=== PATIENT | male | born 1955 | race Caucasian/White ===

== ENCOUNTER 2020-11-07 06:57 | Emergency (ER) | payer OTHER, SELFPAY ==
--- NOTE | 2020-11-07 07:00 | DI.RAD_ITS ---
EXAM: XR WRIST RT COMPLETE CLINICAL HISTORY: pain s/p fall last night. TECHNIQUE: 2D digital imaging was performed. COMPARISON: No exams were available for comparison FINDINGS: BONES: No acute fracture is present. No bony destructive lesion is seen. A well corticated tiny ossic le is seen adjacent to the radial styloid process. This appears chronic. JOINTS: The carpal bones are normally aligned. There are degenerative changes in the wrist. SOFT TISSUE: Chondrocalcinosis is present. Soft tissue swelling around the volar aspect of the wrist is noted. IMPRESSION: No acute fracture or dislocation. Soft tissue swelling of the wrist. DATA REPOSITORY: RADIATION DOSE DELIVERED:
[2020-11-07 07:01] VITALS: BP 155/86; PULSE 61; RESP 16; TEMP 36.7; O2SAT 97
--- NOTE | 2020-11-07 07:04 | ED.GENADUL_ITS ---
Discharge Plan Disposition Patient Disposition: HOME Condition: Stable Discharge Details Clinical Impression: Right wrist sprain Primary Care Provider: Daryl Qureshi ED Provider: Dorian Kitchen Home Meds and New Rx's Prescriptions: Continued multivitamin [Daily Multi-Vitamin] 1 EACH tablet 1 ea PO DAILY RF: 0 Glucosamine Sulf-Chondroitin 1 EACH capsule 1 ea PO DAILY RF: 0 oxycodone 10 MG tablet 10 mg PO Q6H PRN PRN (Reason: Severe Pain) Qty: 14 RF: 0 Discharge Instructions Instructions: Wrist Sprain (ED) Additional Instructions: wear the splint until you are pain free if pain continues in a week follow up with your primary care provider for reevaluation return to the emergency department for severe worsening of pain Medical Decision Making 65 yo male was riding his granddaughter's hoverboard when he fell and landed on his right wrist, denies hitting head or loc, has no head pain, neck pain, chest pain, abdominal pain, back pain or leg pain. HAs pain in the radial right wrist without swelling and can fully move the wrist but with pain. Normal pulses and senastion and no pain in the ringers or carpal bones. No pain in elbow or should with full rom. Suspect sprain vs contusion but will obtain xray to evaluate for fracture. xray negative on my read, if vrad agrees will place in thumb spica splint just due to location of pain and advised if pain continues in a week follow up with pcp Differential Diagnosis Differential Diagnosis: sprain, strain, fx, dislocation, contusion Imaging Data Radiologic Study: Attestation: I personally reviewed and interpreted this imaging study as follows: Imaging: X-Ray My impression: no acute findings HPI General Mode of arrival: ambulatory . Date/Time Provider Initiated Documentation: 11/07/20 07:03 . Limitations to Documentation: no limitations . Information obtained by: patient . History of Present Illness 65 year old M presents to the emergency department with the chief complaint of right wrist pain, described as moderate, and it has been constant. Rest improves symptom(s), Movement worsens symptoms . Patient notes no other symptoms.. Related Data Home Medications Medication Instructions Recorded Confirmed Glucosamine Sulf-Chondroitin 1 ea PO DAILY 02/19/17 11/07/20 multivitamin [Daily Multi-Vitamin] 1 ea PO DAILY 02/19/17 02/19/17 oxycodone 10 mg PO Q6H PRN PRN #14 tab 02/19/17 11/07/20 Previous Rx's Medication Instructions Recorded oxycodone 10 mg PO Q6H PRN PRN #14 tab 02/19/17 Allergies Allergy/AdvReac Type Severity Reaction Status Date / Time No Known Allergies Allergy Unverified 11/07/20 07:05 Review of Systems All systems reviewed & are unremarkable except as noted in HPI and below Constitutional Constitutional: Denies chills, Denies fever(s) and Denies weakness Cardiovascular Cardiovascular: Denies chest pain and Denies dyspnea Respiratory Respiratory: Denies cough and Denies dyspnea Gastrointestinal Gastrointestinal: Denies abdominal pain, Denies nausea and Denies vomiting Neurologic Neurologic: Denies weakness [facility] Social History Smoking/Tobacco Use Status: Never Smoking risk assessment performed?: Yes Alcohol Intake: never Drug use: Never Do you feel safe in your relationship?: Yes Exam Const General: no acute distress Orientation: alert HENMT Head: normal to inspection Ears: external ears normal General nose exam: external nose normal Mouth: moist mucous membranes Eyes General: appearance normal, both eyes and all related structures Neck Neck: normal visual inspection Resp Effort & Inspection: normal respiratory effort and able to speak in complete sentences Cardio Rate: regular rate Skin General skin exam: no rashes or lesions noted Neuro General: patient alert and patient oriented x3 Extrem General: capillary refill normal Psych Mental Status: mental status grossly normal
[2020-11-07] MEDS: Ibuprofen 600 MG TAB PO (07:10)
--- NOTE | 2020-11-07 07:42 | DI.VRAD_ITS ---
PROCEDURE INFORMATION: Exam: XR Right Wrist Exam date and time: 11/07/2020 7:30 AM Age: 65 years old Clinical indication: Other: Pain S/P fall last night TECHNIQUE: Imaging protocol: XR Right wrist. Views: 3 or more views. COMPARISON: No relevant prior studies available. FINDINGS: Bones/joints: Degenerative changes and chondrocalcinosis noted. Chronic ossicle adjacent to the radial styloid process Soft tissues: Swelling noted around the volar aspect of the wrist IMPRESSION: No acute fracture noted Soft tissue swelling as noted Chronic findings as described Dictated and Authenticated by: Eliezer Ann MD. Ordering:MANOLO Alarcon MD
== END 2020-11-07 07:45 | disposition home or self-care (01) ==
LOC: ER 07:32
PROVIDERS: Emergency Provider Emergency Medicine; PCP Family Medicine
DX: S63.591A Other specified sprain of right wrist, initial encounter (principal); V00.181A Fall from other rolling-type pedestrian conveyance, initial encounter
CPT/HCPCS: 29125; 99283; 73110

== ENCOUNTER 2021-05-09 19:20 | Outpatient (REF) | payer OTHER, SELFPAY ==
--- NOTE | 2021-05-09 12:00 | SKI_PTH ---
PATIENT: Orville Power LOC: [facility]#:[id number] AGE/SX: 65/M ROOM: RE05/09/[address]: Daryl Qureshi : 1955 BED: DIS: 05/09/2021 SPEC #: [id number] RECD: 05/10/21 12:42 STATUS: VICKI REIza #: [id number] MARLEY: 05/09/21 12:[address]: Daryl Qureshi DEPT: Surgical Specimen RECD BY: Abeba Hood Tissues: 1 - SKIN BIOPSY(SHAVE/PUNCH) Procedures: SKIN LEVEL 4 Comments: [id number]
[2021-05-09 20:27] LABS: Hemoglobin A1C 5.6 % (<5.7)
== END 2021-05-09 19:21 | disposition home or self-care (01) ==
LOC: NCHCN 19:20
PROVIDERS: PCP Family Medicine; Visit Provider Family Medicine
DX: C44.519 Basal cell carcinoma of skin of other part of trunk (principal)
CPT/HCPCS: 82565; 83036; 88305

== ENCOUNTER 2022-05-10 14:13 | Outpatient (REF) | payer OTHER, SELFPAY ==
--- NOTE | 2022-05-10 12:40 | SKI_PTH ---
PATIENT: Orville Power LOC: [facility]#:[id number] AGE/SX: 66/M ROOM: RE05/10/[address]: Daryl Qureshi : 1955 BED: DIS: 05/10/2022 SPEC #: [id number] RECD: 05/10/22 17:16 STATUS: VICKI REQ #: [id number] MARLEY: 05/10/22 12:[address]: Daryl Qureshi DEPT: Surgical Specimen RECD BY: Abeba Hood Tissues: 1 - SKIN BIOPSY(SHAVE/PUNCH) Procedures: SKIN LEVEL 4 Comments: [id number]
== END 2022-05-10 14:14 | disposition home or self-care (01) ==
LOC: NCHCN 14:13
PROVIDERS: PCP Family Medicine; Visit Provider Family Medicine
DX: L82.1 Other seborrheic keratosis (principal)
CPT/HCPCS: 88305

== ENCOUNTER 2023-05-17 11:07 | Outpatient (REF) | payer OTHER, SELFPAY ==
[2023-05-17 17:27] LABS: CREATININE 1.1 mg/dL (0.70-1.30); Calculated LDL 131 mg/dL (<100); Cholesterol 213 mg/dL (<200); HDL Cholesterol 67 mg/dL (40-60); Triglyceride 76 mg/dL (<150)
== END 2023-05-17 11:08 | disposition home or self-care (01) ==
LOC: NCHCN 11:07
PROVIDERS: PCP Family Medicine; Visit Provider Family Medicine
DX: Z00.00 Encounter for general adult medical examination without abnormal findings (principal); I10 Essential (primary) hypertension
CPT/HCPCS: 80061; 82565

== ENCOUNTER 2024-12-31 16:31 | Outpatient (CLI) | payer OTHER, SELFPAY ==
--- NOTE | 2024-12-31 | DI.RAD_ITS ---
Exam(s) XR KNEE RT 3V AP,LAT,ESTEBAN EXAM: XR KNEE RT 3V AP,LAT,ESTEBAN CLINICAL HISTORY: H/o OA, rt knee, M17.9, chondrocalcinosis present on x-ray of 2017, left. TECHNIQUE: 2D digital imaging was performed of the right knee. Three views obtained. AP, lateral an d PA tunnel views were obtained. COMPARISON: CR RIGHT KNEE 3 VIEWS from 02/19/2017 FINDINGS: BONES: No acute fracture is present. No bony destructive lesion is seen. JOINTS: There are marked degenerative changes seen in the right knee characterized by joint space pallavi rowing and osteophytes. The findings are most marked in the lateral femoral tibial in the patellofem oral joint. There is medial subluxation of the femur relative to the tibial plateau. There is chond rocalcinosis present. No joint effusion is seen. The patella appears laterally subluxed relative to the distal femur. SOFT TISSUE: Normal. IMPRESSION: Marked arthrosis of the right knee which has significantly progressed since the prior examination 2016. DATA REPOSITORY: RADIATION DOSE DELIVERED:
== END 2024-12-31 16:51 ==
PROVIDERS: PCP Family Medicine; Visit Provider Student in an Organized Health Care Education/Training Program
DX: M17.11 Unilateral primary osteoarthritis, right knee (principal)
CPT/HCPCS: 73562

== ENCOUNTER 2024-12-31 22:04 | Outpatient (REF) | payer OTHER, SELFPAY ==
[2024-12-31 19:41] LABS: Vitamin D 25 Total 67.9 ng/mL (30-100)
== END 2024-12-31 22:05 | disposition home or self-care (01) ==
LOC: NCHCN 22:04
PROVIDERS: PCP Family Medicine; Visit Provider Student in an Organized Health Care Education/Training Program
DX: E55.9 Vitamin D deficiency, unspecified (principal)
CPT/HCPCS: 82306

== ENCOUNTER 2025-03-25 09:12 | Outpatient (REF) | payer OTHER, SELFPAY ==
--- NOTE | 2025-03-24 07:38 | SKI_PTH ---
PATIENT: Orville Power LOC: [facility] U#:[id number] AGE/SX: 69/M ROOM: RE03/25/[address]: Jared Wei MD : 1955 BED: DIS: 03/25/2025 SPEC #: [id number] RECD: 03/25/25 11:46 STATUS: VICKI REQ #: [id number] MARLEY: 03/24/25 07:[address]: Jared Wei DEPT: Surgical Specimen RECD BY: Abeba Hood ENTERED: 03/25/25 11:47 SP TYPE: MARIO REBOLLEDO DR: Robbi Choudhary Tissues: 1 - SKIN BIOPSY(SHAVE/PUNCH) Procedures: SKIN LEVEL 4 Comments: [id number]
== END 2025-03-25 09:13 | disposition home or self-care (01) ==
LOC: LBN 09:12
PROVIDERS: PCP Student in an Organized Health Care Education/Training Program; Visit Provider Otolaryngology
DX: C44.319 Basal cell carcinoma of skin of other parts of face (principal)
CPT/HCPCS: 88305

== ENCOUNTER 2025-05-04 07:55 | Day surgery (SDC) | payer OTHER, SELFPAY ==
[2025-05-04] VITALS (13 sets, daily range): BP systolic 118–187; BP diastolic 70–89; PULSE 49–68; RESP 13–16; TEMP 36.2–36.6; O2SAT 97–100; BMI 22.4
[2025-05-04] MEDS: Lactated Ringers 1,000 ML 50 ML IV (08:38)
--- NOTE | 2025-05-04 09:11 | W.ANESPRE ---
General Info Date of Service Date Performed: 05/04/25 Height: 5 ft 11 in Weight: 73.1 kg Body Mass Index (BMI): 22.4 Surgical Procedure: Operation Date: 05/04/25 09:55 Proposed Procedure Side Surgeon p Septoplasty Jared Wei MD Meds Allergies and Home Medications Allergies Allergy/AdvReac Type Severity Reaction Status Date / Time No Known Allergies Allergy Verified 05/04/25 08:18 Home Medication ?Medication ?Instructions ?Recorded glucosamine sulfate dipotassium Cl 1 ea PO DAILY 02/19/17 500 mg-chondroitin 400 mg capsule (Glucosamine Sulfate 2 KCL-Chondroitin) multivitamin (Daily Multi-Vitamin 1 ea PO DAILY 02/19/17 tablet) cholecalciferol (vitamin D3) 10 10 mcg PO DAILY 01/06/25 mcg (400 unit) capsule tadalafil 10 mg tablet (Cialis) 10 mg PO DAILY PRN 01/06/25 magnesium 200 mg tablet 400 mg PO DAILY 01/15/25 Current Visit Medications: Current Medications Generic Name Dose Route Start Last Admin Trade Name Nyasia PRN Reason Stop Dose Admin Cefazolin Sodium/Dextrose 2 gm in 50 mls @ 100 mls/hr 05/04/25 06:00 Ancef Duplex IVPB 05/04/25 23:59 PREOP MARIA ESTHER Tranexamic Acid/Sodium Chloride 1,000 mg in 100 mls @ 600 mls/hr 05/04/25 06:00 IVPB 05/04/25 23:59 PREOP MARIA ESTHER Ringer's Solution 1,000 mls @ 50 mls/hr 05/04/25 08:45 IV 06/03/25 08:44 INFUSION MARIA ESTHER IV Miscellaneous Supplies 1 each 05/04/25 06:00 Iv Access IV 05/04/25 23:59 DIRECTED MARIA ESTHER Sodium Chloride 0 ml 05/04/25 06:00 Normal Saline Flush 10 Ml Syr IV 05/04/25 23:59 PRN PRN Sodium Chloride 0 ml 05/04/25 06:00 Normal Saline 10 Ml Vial IJ 05/04/25 23:59 DIRECTED PRN Sterile Water 0 ml 05/04/25 06:00 Water,Injection,Sterile 10 Ml Vial IJ 05/04/25 23:59 DIRECTED PRN PFSH Active Problems Active Problems: Problem Status Onset Code Osteoarthritis of right knee Acute M17.11 Skin lesion Acute L98.9 Other specified disorders of nose and nasal sinuses Acute J34.89 Essential hypertension Acute I10 Erectile dysfunction Acute N52.9 Hyperlipidemia Acute E78.5 Vitamin D deficiency Acute E55.9 Basal cell carcinoma of skin Acute C44.91 Medical History Medical History Disorder of skin or subcutaneous tissue Osteoarthritis Lesion of skin of face Actinic keratosis Follicular cyst of skin and subcutaneous tissue Nasal obstruction Deviated nasal septum History of ETOH abuse Surgical History Surgical History History of vasectomy Tobacco Smoking/Tobacco Use Status: Never Passive smoking exposure: No Alcohol Alcohol Intake: former Substance Use Substance use: Never Vital Signs and Lab Results Vital Signs Most Recent Vital Signs in EMR: Most Recent Vital Signs Temp Pulse Resp BP Pulse Ox 36.5 C 68 16 187/85 H 98 05/04/25 08:20 05/04/25 08:20 05/04/25 08:20 05/04/25 08:20 05/04/25 08:20 Lab Results Blood Type / Crossmatch: No Data to Display Complete Blood Count: No Data to Display Complete Metabolic Panel: No Data to Display Liver Function Panel: No Data to Display Coagulation Panel: No Data to Display Cardiac Panel: No Data to Display Arterial Blood Gas: No Data to Display Venous Blood Gas: No Data to Display Pancreas Panel: No Data to Display Thyroid Panel: No Data to Display Infectious Disease: No Data to Display Blood Cultures: No Data to Display Toxicology Panel: No Data to Display Anesthesia Assessment and Plan Anesthesia History Personal History: PONV Family History: No Family History of Anesthesia Complications Exercise Tolerance Exercise Tolerance: Metabolic Equivalents>4 Pertinent Negatives Pertinent Negatives: No Symptoms of GERD, No Major Cardiovascular Symptoms or Complaints and No Major Pulmonary Symptoms or Complaints Cardiac & Pulmonary Exam Cardiac Exam: Normal S1/S2 Heart Sounds Pulmonary Exam: Clear Bilateral Breath Sounds Implantable Cardiac Device Does patient have a Pacemaker or an ICD?: No Airway Exam Known Difficult Airway: No Mallampati Class: 2 Mouth Opening: Normal (> 3cm) Thyromental Distance: Greater than 3 cm Neck Range of Motion: Full ROM Neck Circumference: Normal Teeth Condition: Normal Dentition ASA Classification ASA Score: ASA 2 Emergency Case?: No NPO Status NPO Status: NPO Clears >2 hours, Solids >8 hours Anesthesia Plan Resuscitation Status: Full Code Anesthesia Technique: General Anesthesia Airway Planned: Endotracheal Tube Monitors Used: Standard Monitors
--- NOTE | 2025-05-04 09:25 | PDOC.DSDIS_ITS ---
Date of service: 05/04/25 Discharge Plan Disposition Patient Disposition: Home Condition: Good Discharge Details Reason For Visit: Septoplasty Attending Provider: Jared Wei Primary Care Provider: Robbi Choudhary Home Meds and New Rx's Prescriptions: New cephalexin 500 mg capsule 500 mg PO TID 7 Days Qty: 21 0RF No Action tadalafil [Cialis] 10 mg tablet 10 mg PO DAILY PRN Rx Instructions: administer approximately 30min before sexual activity; do not use more than 1 dose per 24hrs cholecalciferol (vitamin D3) 10 mcg (400 unit) capsule 10 mcg PO DAILY magnesium 200 mg tablet 400 mg PO DAILY multivitamin [Daily Multi-Vitamin] 1 EACH tablet 1 ea PO DAILY Glucosamine Sulf-Chondroitin 1 EACH capsule 1 ea PO DAILY Discharge Instructions Additional Instructions: My cell phone number is [phone]. Please call with any questions or concerns. If you are unable to reach me and you feel it is an emergency, please call 911 or proceed to the emergency room Stand Alone Forms: ENT-Diego Wei Referrals: Jared Wei MD [ [facility] STAFF PHYSICIAN] - (Follow-up on of this week, please schedule prior to patient's departure) Discharge Orders Discharge Orders: Discharge Order (Routine); Ordered 05/04/25 Ordered By: Jared Wei
--- NOTE | 2025-05-04 09:28 | ROE_ITS ---
Operative Note Operative Note PRE-OP DIAGNOSIS: Deviated nasal septum, nasal obstruction POST-OP DIAGNOSIS: same PROCEDURE: Nasal septoplasty SURGEON: Jared Wei ANESTHESIA TYPE: General LMA/ETT Refer to Anesthesia Record ESTIMATED BLOOD LOSS: 10 PATHOLOGY: other (Septal cartilage) COMPLICATIONS: None Patient was transported to: PACU Patient's condition: stable Implants: Balderrama splints Indications: The patient has chronic nasal obstruction secondary to a markedly deviated quadrangular cartilage. Options were explained to the patient regarding further management after maximal medical therapy failed. He elected to undergo the above procedure. Risks including bleeding, infection, continued symptoms, change in nasal appearance, septal hematoma, septal perforation were discussed at length. All questions were answered prior to the procedure. H&P was reviewed. There have been no changes. Findings: Quadrangular cartilage displaced off of the maxillary spine into the left nares anteriorly resulting in near-total obstruction of the left nasal cavity, with a generalized bow of the quadrangular cartilage posterior to this to the right partially narrowing the nasal cavity on the right. The septal bone was not deviated in the way that contributing to nasal obstruction. Procedure Description: After obtaining the adequate level of general endotracheal anesthesia the patient was positioned in supine position and prepped and draped in appropriate fashion. 1% lidocaine with 1/100,000 epinephrine was injected in the septum bilaterally as well as into the inferior turbinates. Cocaine soaked nasal pledgets were placed in the nasal cavity bilaterally and left for 5 minutes at which point in time the removed and a left-sided hemitransfixion incision was made directly over the anterior edge of the quadrangular cartilage. Submucoperichondrial planes were then developed bilaterally along the quadrangular cartilage, and the quadrangular cartilage was freed from the maxillary crest. Once this been accomplished, leaving the anterior and superior attachments of the quadrangular cartilage intact, a strong dorsal and columellar strut were designed and the deviated quadrangular cartilage posterior to this was excised. This permitted the columella strut to sit in the maxillary crest along the maxillary spine with no tendency to move to 1 side or the other in a resting state. Following this, the septum was reexamined revealing no significant residual deviation causing obstruction. The nasal tip was examined as well as the columella revealing good support of the nasal tip and columella. After ensuring adequate hemostasis, small vent hole was made on the left posterior to the quadrangular cartilage excision to allow any accumulated blood to escape. The hemitransfixion incision was then closed with interrupted 4-0 Monocryl sutures and then Balderrama splints were placed along the septum bilaterally and sutured into place using a 2.0 Toribio needle in a quilting fashion. Care was taken not to apply this too tightly in a way that would impact blood supply. Of note, prior to the placement of the Balderrama splints, a Dougherty elevator could pass easily from the anterior nares to the nasopharynx without significant friction. Nasal airway was deemed to be excellent bilaterally. The patient was then awakened and extubated by anesthesia and taken the recovery room in stable condition. I was present throughout the entire case. Date of Procedure: 05/04/25
[2025-05-04] MEDS: ceFAZolin 2 GM/50 ML BAG IVPB (09:41)
[2025-05-04] MEDS: TRANEXAMIC ACID/SOD. CHL. 1,000 MG/100 ML BAG 600 MG IVPB (09:46)
[2025-05-04] MEDS: Lidocaine 1% Pres-Free W/EPI 1/200,000 10 ML VIAL (10:06)
[2025-05-04] MEDS: Cocaine Nasal 4% 4 ML BTL (10:07)
[2025-05-04] MEDS: Bacitracin 1 PACKET (10:07)
--- NOTE | 2025-05-04 10:12 | NASALBX_PTH ---
PATIENT: Orville Power LOC: [facility] U#:[id number] AGE/SX: 69/M ROOM: RE05/04/[address]: Jared Wei MD : 1955 BED: DIS: 05/04/2025 SPEC #: [id number] RECD: 05/04/25 13:10 STATUS: VICKI REIza #: [id number] MARLEY: 05/04/25 10:[address]: Jared Wei DEPT: Surgical Specimen RECD BY: Abeba Hood ENTERED: 05/04/25 13:11 SP TYPE: NASALBX OTHR DR: Robbi Choudhary Tissues: 2 - NASAL SEPTUM Procedures: GROSS AND MICRO LEVEL 3 Comments: CANCELED PER DR JARED WEI, NOT INTENDED FOR PATHOLOGY TESTING. NO SPECIMEN IN CONTAINER, ORDER CREATED IN ERROR.
--- NOTE | 2025-05-04 11:11 | W.ANESPOSTOP ---
Postoperative Evaluation Date, Time and Location Date Performed: 05/04/25 Time Performed: 11:11 Patient Location: Day Surgery Unit Vital Signs Most Recent Imported Vital Signs: Most Recent Vital Signs Temp Pulse Resp BP Pulse Ox 36.5 C 54 L 16 129/85 98 05/04/25 11:01 05/04/25 11:01 05/04/25 11:01 05/04/25 11:00 05/04/25 11:01 Pain Score Most Recent Pain Score: Most Recent Pain Score Pain Level 0 05/04/25 11:01 Assessment Mental Status: Awake (Alert & Oriented to Patient Baseline) Airway and Respiratory Function: Patent airway with normal (patient baseline) respiratory exam Cardiovascular Function: Hemodynamically Stable Hydration Status: Adequately Hydrated Nausea & Vomiting: No Nausea or Vomiting Pain: Pt. Denies Any Pain Peripheral Nerve Block: Patient did not receive a nerve block
[2025-05-04] MEDS: Ibuprofen 600 MG TAB PO (11:28)
[2025-05-04] MEDS: Acetaminophen Solution 650 MG/20.3 ML CUP PO (11:28)
== END 2025-05-04 11:58 | disposition home or self-care (01) ==
PROVIDERS: PCP Student in an Organized Health Care Education/Training Program; Visit Provider Otolaryngology
PROC: (CPT 30520; principal; 2025-05-04 09:45)
DX: J34.2 Deviated nasal septum (principal); J34.89 Other specified disorders of nose and nasal sinuses
CPT/HCPCS: 30520; 88304; J0690; J1100; J2003; J2004; J2405; J2704